=== PATIENT | female | born 1940 | race Caucasian/White ===

== ENCOUNTER 2016-11-05 10:05 | Emergency (ER) | payer MEDICARE, MEDICAID ==
[~2016-11-05] VITALS: Ht 149.9 cm; Wt 40.8 kg
[2016-11-05] MEDS ORDERED: ACETAMINOPHEN ES 500 MG TABLET ONE (10:17)
[2016-11-05] MEDS: ACETAMINOPHEN ES 500 MG TABLET PO ONE (10:22)
[2016-11-05 12:44] VITALS: BP 116/60
== END 2016-11-05 12:45 | disposition home or self-care (01) ==
LOC: ER 10:10
DX: S30.0XXA Contusion of lower back and pelvis, initial encounter (principal); E78.5 Hyperlipidemia, unspecified; F02.80 Dementia in other diseases classified elsewhere, unspecified severity, without behavioral disturbance, psychotic disturbance, mood disturbance, and anxiety; G30.9 Alzheimer's disease, unspecified; I12.0 Hypertensive chronic kidney disease with stage 5 chronic kidney disease or end stage renal disease; N18.6 End stage renal disease; Z86.73 Personal history of transient ischemic attack (TIA), and cerebral infarction without residual deficits; W18.39XA Other fall on same level, initial encounter; Y93.89 Activity, other specified; Y92.89 Other specified places as the place of occurrence of the external cause; Y99.9 Unspecified external cause status
CPT/HCPCS: 72110-TC; A4606; Z7610

== ENCOUNTER 2017-04-26 12:10 | Inpatient (IN) | payer MEDICARE, MEDICAID ==
[~2017-04-26] VITALS: Ht 152.4 cm; Wt 49.0 kg
--- NOTE | 2017-04-26 12:10 | NUR ---
BB PRIVATE EMS FROM [facility] FOR FEVER. PT C/O COUGH AND CONGESTION PT MISSED HER DIALYSIS YESTERDAY. PLACED ON MONITOR. AWAITING MD ORDER
[2017-04-26] MEDS ORDERED: ACETAMINOPHEN ES 500 MG TABLET PO ONE (12:30)
[2017-04-26] MEDS ORDERED: PIPERACILLIN /TAZOBACTAM 3.375 G in IV D5W 50 ML IV ONE (12:30)
[2017-04-26] MEDS ORDERED: VANCOMYCIN 1 GM in IV D5W 250 ML IV ONE (12:30)
[2017-04-26] MEDS ORDERED: IV NS 0.9% 1,000 ML BAG IV ONE (12:30)
[2017-04-26 12:41] LABS: BASOPHILS % (AUTO) 0.1 % (0.0-2.0); EOSINOPHILS # (AUTO) 0.1 /CMM (0.0-0.7); EOSINOPHILS % (AUTO) 0.9 % (0.0-6.0); HEMATOCRIT 39 % (33-45); LYMPHOCYTES # (AUTO) 0.7 /CMM (0.8-4.8); LYMPHOCYTES % (AUTO) 5.6 % (20.0-44.0); MEAN CORPUSCULAR HEMOGLOBIN 31 PG (26.0-33.0); MEAN CORPUSCULAR HGB CONC 33 g/dl (31.0-36.0); MEAN CORPUSCULAR VOLUME 93 fL (82-100); MONOCYTES # (AUTO) 0.6 /CMM (0.1-1.30); MONOCYTES % (AUTO) 4.9 % (2.0-12.0); NEUTROPHILS # (AUTO) 10.6 /CMM (1.8-8.9); NEUTROPHILS % (AUTO) 88.5 % (43.0-81.0); PLATELET COUNT (AUTO) 182 /CMM (150-450); RDW COEFFICIENT OF VARIATION 15.1 (11.5-15.0)
[2017-04-26 12:51] LABS: CALCIUM, SERUM 9.3 mg/dL (8.5-10.1); CARBON DIOXIDE 28 mmol/L (21-32); CHLORIDE 97 mmol/L (98-107); GLUCOSE 95 mg/dL (74-106); POTASSIUM 4.3 mmol/L (3.5-5.1); SODIUM SERUM 137 mmol/L (136-145); UREA NITROGEN, BLOOD 50 mg/dL (7-18)
[2017-04-26] MEDS ORDERED: ACETAMINOPHEN ES 500 MG TABLET ONE (12:53)
[2017-04-26 12:56] LABS: CREATININE 7.5 mg/dL (0.6-1.3)
[2017-04-26 12:57] LABS: ALANINE AMINOTRANSFERASE 11 U/L (12-78); ALBUMIN 2.9 g/dL (3.4-5.0); ALKALINE PHOSPHATASE 141 U/L (46-116); ASPARTATE AMINOTRANSFERASE 24 U/L (15-37); BILIRUBIN,DIRECT 0.2 mg/dL (0.0-0.2); TOTAL PROTEIN, SERUM 6.8 g/dL (6.4-8.2)
[2017-04-26 12:59] LABS: TROPONIN I 0.146 ng/mL (0.00-0.056)
--- NOTE | 2017-04-26 13:00 | NUR ---
SQL ARCHITECT AT BEDSIDE
[2017-04-26 13:02] LABS: INR 1.14 (0.87-1.13); PROTHROMBIN TIME 11.9 SECS (9.5-12.7)
--- NOTE | 2017-04-26 13:12 | NUR ---
DR. CHAMP REECE
[2017-04-26] MEDS ORDERED: CILO100T PO (13:28)
[2017-04-26] MEDS ORDERED: AMLO10TA2 PO (13:28)
[2017-04-26] MEDS ORDERED: FOLI0.8T23 PO (13:28)
[2017-04-26] MEDS ORDERED: MIRT7.5T10 PO (13:28)
[2017-04-26] MEDS ORDERED: SULF15DR6 EACHEYE (13:28)
[2017-04-26] MEDS ORDERED: BENA20TA2 PO (13:28)
[2017-04-26] MEDS ORDERED: ASPI-1152 PO (13:28)
[2017-04-26] MEDS ORDERED: ESOM20CA PO (13:28)
[2017-04-26] MEDS ORDERED: ATOR10TA PO (13:28)
[2017-04-26] MEDS ORDERED: DULO30CA2 PO (13:28)
[2017-04-26] MEDS ORDERED: SEVE800T8 PO (13:28)
--- NOTE | 2017-04-26 13:34 | NUR ---
[facility] PAGED DR SOLO AMMUNITION AND EXPLOSIVES HANDLER [phone]
[2017-04-26] MEDS ORDERED: IV NS 0.9% 1,000 ML IV PRN (14:21)
--- NOTE | 2017-04-26 14:27 | NUR ---
RECEIVED REPORT FROM ANGELIQUE STRANGE RN
[2017-04-26] MEDS ORDERED: ENOXAPARIN SODIUM 30 MG/0.3 ML DISP.SYRIN SQ SCH (14:30)
[2017-04-26] MEDS ORDERED: HYDROCODONE/APAP 5/325MG 1 EACH TABLET PO PRN (14:30)
[2017-04-26] MEDS ORDERED: MAG HYDROX/AL HYDROX/SIMETH 30 ML UDC PO PRN (14:30)
[2017-04-26] MEDS ORDERED: ZOLPIDEM TARTRATE 5 MG TABLET PO PRN (14:30)
[2017-04-26] MEDS ORDERED: ACETAMINOPHEN 325 MG TABLET PO PRN (14:30)
[2017-04-26] MEDS ORDERED: Z GUARD REMEDY 2 OZ OINT TP PRN (14:30)
--- NOTE | 2017-04-26 14:30 | NUR ---
PT REFUSED HDEZ CATH UNABLE TO PROVIDE URINE AT THIS TIME MD MENDOZA
--- NOTE | 2017-04-26 14:35 | NUR ---
GAVE REPORT TO ABEL GALINDO TELE 307-1 PNEUMONIA
--- NOTE | 2017-04-26 14:35 | NUR ---
ADMITTING DR SOLO
--- NOTE | 2017-04-26 15:30 | NUR ---
PATIENT REFUSED STRAIGHT CATH FOR URINE SPECIMEN
[2017-04-26] MEDS ORDERED: FEE PK DOSING 1 MIN EA MC ONE (15:58)
[2017-04-26 16:00] VITALS: BP_SYST 101; BP_SYST 154; BP_DIAS 57; BP_DIAS 92
--- NOTE | 2017-04-26 16:30 | NUR ---
RN ADMITTING NOTES PATIENT ARRIVED TO UNIT VIA A GURNEY AND PLACED IN ROOM 307-1. NO SIGNS AND SYMPTOMS OF DISTRESS OR PAIN. VITAL SIGNS ARE STABLE. 10L MASK SATURATING AT 92%. POSSIBLE DIAGNOSIS OF PNEUMONIA. BED IN LOW POSITION, LOCKED AND TWO SIDE RAILS ARE UP. WILL CONTINUE TO MONITOR AND ASSESS PATIENT THROUGH OUT MY SHIFT
[2017-04-26] MEDS: DOCUSATE SODIUM 100 MG CAPSULE PO SCH (16:48)
[2017-04-26] MEDS: CILOSTAZOL 100 MG TABLET PO SCH (16:48)
[2017-04-26] MEDS: SEVELAMER CARBONATE 800 MG TABLET PO SCH (16:48)
--- NOTE | 2017-04-26 18:49 | NUR ---
RN CLOSING NOTES PATIENT IS IN BED. ALERT AND ORIENTED TO NAME, PLACE AND TIME. SLOVAK SPEAKER. NO SIGNS AND SYMPTOMS OF DISTRESS. DENIED PAIN. IV SITE IS INTACT AND PATENT. ALL NURSING CARE ANTICIPATED AND MET. PATIENT KEPT SAFE AND CLEAN. BED IN LOW POSITION, LOCKED AND TWO SIDE RAILS ARE UP. CALL LIGHT WITHIN REACH FOR SAFETY. WILL ENDORSE TO DUST BOX WORKER NURSE.
--- NOTE | 2017-04-26 19:34 | NUR ---
rn note; RECEIVE PT IN BED AWAKE, BREATHING EVENLY. ON O2 AT 10LPM VIA MASK. NO SOB. NAD. SKIN WARM AND DRY. NO C/O PAIN OR DISCOMFORT,. BED LOW LOCKED .CALL LIGHT WITHIN REACH. WILL CONT TO MONITOR,
[2017-04-26 20:00] VITALS: BP 104/53
[2017-04-26] MEDS ORDERED: PIPERACILLIN /TAZOBACTAM 2.25 G in IV D5W 50 ML IV SCH (21:00)
[2017-04-26] MEDS ORDERED: PIPERACILLIN /TAZOBACTAM 2.25 G VIAL IV ONE (21:41)
[2017-04-26] MEDS: PIPERACILLIN /TAZOBACTAM 2.25 G in IV D5W 50 ML IV SCH (21:44)
[2017-04-26] MEDS: ATORVASTATIN 10 MG TABLET PO SCH (21:45)
[2017-04-26] MEDS: ONDANSETRON HCL/PF 4 MG/2 ML VIAL IVP PRN (21:45)
[2017-04-26] MEDS: MIRTAZAPINE 15 MG TABLET PO SCH (21:45)
--- NOTE | 2017-04-26 21:45 | NUR ---
ZOSYN IV NOT AVAILABLE ON THE FLOOR. ASKED CN, LIAM TO OVER RIDE THE MEDICATION. UNABLE TO SCAN.
[2017-04-26] MEDS: HEPARIN SODIUM, PORCINE 5000 UNITS/1 ML VIAL SQ SCH (21:46)
--- NOTE | 2017-04-26 21:46 | NUR ---
SPOKE TO DR. ANGULO OVER THE PHONE AND CONFIRMED THE HEPARIN ADMINISTRATION DESPITE THE PTT LEVEL OF 39. NO S/S OF BLEEDING NOTED AT THIS TIME. ZOFRAN GIVEN ORDERED PER PT'S REQUEST FOR C/O NAUSEA. NO EPISODE OF VOMITING. DTR AT THE BED SIDE TRANSLATED THE PT'S COMPLAIN. WILL CONT TO MONITOR,
[2017-04-27] VITALS: BP 112/58
[2017-04-27 04:00] VITALS: BP 107/57
[2017-04-27] MEDS ORDERED: PIPERACILLIN /TAZOBACTAM 2.25 G VIAL IV ONE (04:37)
[2017-04-27] MEDS: PIPERACILLIN /TAZOBACTAM 2.25 G in IV D5W 50 ML IV SCH ×3 (04:58→21:15)
--- NOTE | 2017-04-27 06:16 | NUR ---
RN NOTE; PT IN BED SLEEPING, AROUSES EASILY. BREATHING EVENLY. NO SOB. ON O2 AT 10 LPM VIA MASK JACOB WELL. WITH INTERMITTENT COUGH. AFEBRILE DURING THE NIGHT. NO C/O PAIN OR DISCOMFORT . NO MORE C/O N/V. NEEDS ATTENDED .ASSISTED W/ ADLS . BED LOW LOCKED. CALL LIGHT WITHIN REACH. WILL CONT TO MONITOR AND WILL ENDORSE TO AM SHIFT FOR VLADIMIR. Addendum: 04/27/17 at 0621 by DAKOTAH ARTEAGA RN SINUS RHYTHM ON TELE MONITOR,
[2017-04-27 06:53] LABS: BASOPHILS % (AUTO) 0.2 % (0.0-2.0); HEMATOCRIT 35 % (33-45); HEMOGLOBIN 11.6 g/dL (11.5-14.8); LYMPHOCYTES # (AUTO) 1.3 /CMM (0.8-4.8); LYMPHOCYTES % (AUTO) 11.3 % (20.0-44.0); MEAN CORPUSCULAR HEMOGLOBIN 31 PG (26.0-33.0); MEAN CORPUSCULAR HGB CONC 33 g/dl (31.0-36.0); MEAN CORPUSCULAR VOLUME 94 fL (82-100); MONOCYTES # (AUTO) 0.3 /CMM (0.1-1.30); MONOCYTES % (AUTO) 2.4 % (2.0-12.0); NEUTROPHILS # (AUTO) 10.1 /CMM (1.8-8.9); NEUTROPHILS % (AUTO) 86.1 % (43.0-81.0); PLATELET COUNT (AUTO) 156 /CMM (150-450); RDW COEFFICIENT OF VARIATION 16.1 (11.5-15.0); RED BLOOD CELL COUNT(AUTO) 3.76 MIL/uL (4.0-5.2); WHITE BLOOD COUNT (AUTO) 11.8 K/uL (4.3-11.0)
[2017-04-27 07:04] LABS: ALANINE AMINOTRANSFERASE 16 U/L (12-78); ALBUMIN 2.4 g/dL (3.4-5.0); ALKALINE PHOSPHATASE 139 U/L (46-116); ASPARTATE AMINOTRANSFERASE 28 U/L (15-37); BILIRUBIN,TOTAL 0.9 mg/dL (0.2-1.0); CALCIUM, SERUM 8.9 mg/dL (8.5-10.1); CARBON DIOXIDE 26 mmol/L (21-32); CHLORIDE 100 mmol/L (98-107); GLUCOSE 87 mg/dL (74-106); MAGNESIUM 1.7 mg/dL (1.8-2.4); PHOSPHORUS 3.2 mg/dL (2.5-4.9); POTASSIUM 4.5 mmol/L (3.5-5.1); SODIUM SERUM 140 mmol/L (136-145); UREA NITROGEN, BLOOD 58 mg/dL (7-18)
[2017-04-27 07:09] LABS: CREATININE 7.9 mg/dL (0.6-1.3)
[2017-04-27 07:33] LABS: CHOLESTEROL 73 mg/dL (<200); HDL CHOLESTEROL 31 mg/dL (40-60); LDL 19 mg/dL (0-99); TRIGLYCERIDES 77 mg/dL (30-150)
[2017-04-27 08:00] VITALS: BP 106/64
--- NOTE | 2017-04-27 08:00 | NUR ---
SKEINER NOTES PATIENT IN BED RESTING NO SOB OR ACUTE DISTRESS. PATIENT ARGENTINE SPEAKING. ON 10L OF FACE MASK WILL TITRATE OXYGEN PATIENT TOLERATES. PATIENT ALERT, ORIENTED X3. BED IN LOW LOCKED POSITION. CALL LIGHT WITHIN REACH. PERIPHERAL IV INTACT PATENT. WILL CONTINUE TO MONITOR.
[2017-04-27] MEDS: VIT B CMPLX 3/FA/VIT C/BIOTIN 1 TAB TABLET PO SCH (08:20)
[2017-04-27] MEDS: CILOSTAZOL 100 MG TABLET PO SCH ×2 (08:20→16:35)
[2017-04-27] MEDS: ASPIRIN EC 81 MG TABLET.DR PO SCH (08:20)
[2017-04-27] MEDS: SEVELAMER CARBONATE 800 MG TABLET PO SCH ×3 (08:20→16:35)
[2017-04-27] MEDS: DOCUSATE SODIUM 100 MG CAPSULE PO SCH ×2 (08:20→16:36)
[2017-04-27] MEDS: PANTOPRAZOLE 40 MG TABLET.DR PO SCH (08:20)
[2017-04-27] MEDS: AMLODIPINE BESYLATE 10 MG TABLET PO SCH (08:21)
[2017-04-27] MEDS: HEPARIN SODIUM, PORCINE 5000 UNITS/1 ML VIAL SQ SCH ×2 (08:22→21:16)
[2017-04-27] MEDS: BENAZEPRIL HCL 20 MG TABLET PO SCH (08:22)
[2017-04-27] MEDS ORDERED: DULOXETINE HCL 30 MG CAPSULE.DR PO SCH (09:00)
[2017-04-27 12:00] VITALS: BP 125/62
--- NOTE | 2017-04-27 13:50 | NUR ---
BAKERY ASSISTANT NOTES PATIENT SEEN AND EVALUATED BY DR. PEREZ ORDERS FOR HD ON 04/28/17 AND DC IV FLUIDS ORDERS NOTED AND CARRIED OUT.
[2017-04-27 16:00] VITALS: BP 99/55
[2017-04-27] MEDS ORDERED: VANCOMYCIN 500 MG in IV D5W 100 ML IV PRN (16:00)
[2017-04-27] MEDS: LACTOBACILLUS RHAMNOSUS GG 1 EACH CAP.SPRINK PO SCH (18:12)
--- NOTE | 2017-04-27 18:34 | NUR ---
REPORTING ANALYST NOTES PATIENT IN BED RESTING NO SOB OR ACUTE DISTRESS NOTED. PATIENT ALERT, ORIENTED X3. PERIPHERAL IV INTACT PATENT. ALL DUE MEDICATIONS ADMINISTERED. ALL NEEDS MET. WILL ENDORSE CARE TO PM SHIFT.
--- NOTE | 2017-04-27 19:30 | NUR ---
rn note; RECEIVED PT IN BED, AWAKE AND RESPONSIVE. BREATHING EVENLY. NO SOB. NAD . O2 AT 5LMP VIA NC JACOB WELL.SKIN WARM AND DRY,. AFEBRILE. DENIED ANY PAIN OR DISCOMFORT, SR ON TELE MONITOR, NEEDS ATTENDED. CALL LIGHT WITHIN REACH. WILL CONT TO MONITOR,
[2017-04-27 20:00] VITALS: BP 106/55
[2017-04-27] MEDS: MIRTAZAPINE 15 MG TABLET PO SCH (21:14)
[2017-04-27] MEDS: ATORVASTATIN 10 MG TABLET PO SCH (21:14)
[2017-04-28] VITALS: BP 108/57
[2017-04-28 04:00] VITALS: BP 107/64
[2017-04-28] MEDS: PIPERACILLIN /TAZOBACTAM 2.25 G in IV D5W 50 ML IV SCH ×3 (05:21→21:35)
--- NOTE | 2017-04-28 06:13 | NUR ---
PT IN BED SLEEPING, AROUSES EASILY. BREATHING EVENLY. NO SOB. O2 AT 5LPM VIA NC JACOB WELL. DENIED ANY PAIN OR DISCOMFORT. ALL NEEDS ATTENDED. ASSISTED W/ ADLs. CALL LIGHT WITHIN REACH,. WILL CONT TO MONITOR AND WILL ENDORSE TO MONITOR,
[2017-04-28 08:00] VITALS: BP 123/68
[2017-04-28 08:06] LABS: CALCIUM, SERUM 8.5 mg/dL (8.5-10.1); CARBON DIOXIDE 23 mmol/L (21-32); CHLORIDE 99 mmol/L (98-107); GLUCOSE 84 mg/dL (74-106); MAGNESIUM 1.8 mg/dL (1.8-2.4); POTASSIUM 4.6 mmol/L (3.5-5.1); SODIUM SERUM 138 mmol/L (136-145); UREA NITROGEN, BLOOD 67 mg/dL (7-18)
[2017-04-28 08:07] LABS: CREATININE 8.8 mg/dL (0.6-1.3)
[2017-04-28] MEDS: AMLODIPINE BESYLATE 10 MG TABLET PO SCH (09:00)
[2017-04-28] MEDS: DOCUSATE SODIUM 100 MG CAPSULE PO SCH ×2 (09:16→17:46)
[2017-04-28] MEDS: LACTOBACILLUS RHAMNOSUS GG 1 EACH CAP.SPRINK PO SCH ×2 (09:16→17:46)
[2017-04-28] MEDS: SEVELAMER CARBONATE 800 MG TABLET PO SCH ×3 (09:16→17:46)
[2017-04-28] MEDS: VIT B CMPLX 3/FA/VIT C/BIOTIN 1 TAB TABLET PO SCH (09:16)
[2017-04-28] MEDS: PANTOPRAZOLE 40 MG TABLET.DR PO SCH (09:16)
[2017-04-28] MEDS: ASPIRIN EC 81 MG TABLET.DR PO SCH (09:16)
[2017-04-28] MEDS: BENAZEPRIL HCL 20 MG TABLET PO SCH (11:20)
[2017-04-28 12:00] VITALS: BP 90/54
[2017-04-28] MEDS: CILOSTAZOL 100 MG TABLET PO SCH ×2 (14:16→18:42)
[2017-04-28] MEDS: HEPARIN SODIUM, PORCINE 5000 UNITS/1 ML VIAL SQ SCH (14:17)
[2017-04-28] MEDS ORDERED: VANCOMYCIN 1 GM in IV D5W 250 ML IV ONE (15:00)
[2017-04-28 16:00] VITALS: BP_SYST 111; BP_DIAS 62; BP_DIAS 67
--- NOTE | 2017-04-28 18:00 | NUR ---
PT. HAD DIALYSIS TODAY TOLERATED WELL,BP DOWN FOLLOWING DIALYSIS,AM BP MEDS HELD.FAMILY IN TO VISIT.
--- NOTE | 2017-04-28 19:35 | NUR ---
MS/RN NOTES RECEIVED PT. LYING IN BED RESTING. BREATHING EVEN AND UNLABORED ON ROOM AIR. NO SOB, RESPIRATORY DISTRESS OR COMPLAINTS OF PAIN NOTED AT THIS TIME. PT. WITH LEFT AC 20 GAUGE IV SALINE LOCK PRESENT, PATENT AND INTACT. BED LOCKED AND IN LOWEST POSITION, SIDE RAILS UP X3, BED ALARM ON, CALL LIGHT WITHIN REACH, WILL CONTINUE TO MONITOR.
[2017-04-28 20:00] VITALS: BP 106/55
[2017-04-28] MEDS: MIRTAZAPINE 15 MG TABLET PO SCH (21:35)
[2017-04-28] MEDS: ATORVASTATIN 10 MG TABLET PO SCH (21:35)
[2017-04-29] MEDS: HEPARIN SODIUM, PORCINE 5000 UNITS/1 ML VIAL SQ SCH ×3 (00:50→20:48)
[2017-04-29] MEDS: PIPERACILLIN /TAZOBACTAM 2.25 G in IV D5W 50 ML IV SCH ×3 (05:38→20:34)
[2017-04-29] MEDS ORDERED: VANCOMYCIN 500 MG in IV D5W 100 ML IV PRN (06:00)
--- NOTE | 2017-04-29 06:09 | NUR ---
MS/RN NOTES PT. IS LYING IN BED. AWAKE, ALERT AND ORIENTED X 2-3. BREATHING EVEN AND UNLABORED ON ROOM AIR. NO SOB, RESPIRATORY DISTRESS OR COMPLAINTS OF PAIN NOTED AT THIS TIME. PT. WITH LEFT AC 20 GAUGE PERIPHERAL IV PRESENT, PATENT AND INTACT. ADMINISTERING TO PT. ZOSYN ORDERED. ALL PT. NEEDS MET. BED LOCKED AND IN LOWEST POSITION, SIDE RAILS UP X3, BED ALARM ON, CALL LIGHT WITHIN REACH, WILL ENDORSE TO DAYSHIFT NURSE FOR CONTINUITY OF CARE.
--- NOTE | 2017-04-29 07:30 | NUR ---
RECEIVED PT. IN AM ALERT AND ORIENTED X2-3.NO COMPLAINTS OFFERED.
[2017-04-29 08:00] VITALS: BP 125/70
[2017-04-29 08:19] LABS: CALCIUM, SERUM 8.9 mg/dL (8.5-10.1); CARBON DIOXIDE 29 mmol/L (21-32); CHLORIDE 96 mmol/L (98-107); CREATININE 6.6 mg/dL (0.6-1.3); GLUCOSE 84 mg/dL (74-106); POTASSIUM 4.1 mmol/L (3.5-5.1); SODIUM SERUM 137 mmol/L (136-145); UREA NITROGEN, BLOOD 37 mg/dL (7-18)
[2017-04-29] MEDS: BENAZEPRIL HCL 20 MG TABLET PO SCH (09:00)
[2017-04-29] MEDS: SEVELAMER CARBONATE 800 MG TABLET PO SCH ×3 (09:47→17:55)
[2017-04-29] MEDS: CILOSTAZOL 100 MG TABLET PO SCH ×2 (09:48→17:55)
[2017-04-29] MEDS: LACTOBACILLUS RHAMNOSUS GG 1 EACH CAP.SPRINK PO SCH ×2 (09:48→17:55)
[2017-04-29] MEDS: AMLODIPINE BESYLATE 10 MG TABLET PO SCH (09:48)
[2017-04-29] MEDS: VIT B CMPLX 3/FA/VIT C/BIOTIN 1 TAB TABLET PO SCH (09:48)
[2017-04-29] MEDS: DOCUSATE SODIUM 100 MG CAPSULE PO SCH ×2 (09:49→17:55)
[2017-04-29] MEDS: PANTOPRAZOLE 40 MG TABLET.DR PO SCH (09:49)
[2017-04-29] MEDS: ASPIRIN EC 81 MG TABLET.DR PO SCH (09:49)
[2017-04-29] MEDS: ONDANSETRON HCL/PF 4 MG/2 ML VIAL IVP PRN (14:50)
--- NOTE | 2017-04-29 14:50 | NUR ---
MEDICATED FOR NAUSEA WITH ZOFRAN.
--- NOTE | 2017-04-29 14:50 | NUR ---
MEDICATED Addendum: 04/29/17 at 1917 by KRISTIE TANG RN INCOMPLETE NOTE
[2017-04-29 16:52] VITALS: BP 108/57
--- NOTE | 2017-04-29 17:34 | NUR ---
ANTOLIN PEREZ,DR. NATION, IN TO SEE PT.ORDERS GIVEN.DR. NATION INFORMED THAT PT. IS HAVING DIARRHEA.
--- NOTE | 2017-04-29 19:00 | NUR ---
PT. DID NOT EAT BREAKFAST OR LUNCH.
--- NOTE | 2017-04-29 19:30 | NUR ---
MS RN NOTES RECEIVED PT IN BED, RESTING AT THIS TIME. AWAKE, A/O X 2. FAROESE SPEAKING. NO SOB NOR DISTRESS NOTED AT THIS TIME. DENIES ANY PAIN OR DISCOMFORT. IV ON LAC INTACT AND PATENT, NO S/S OF INFILTRATION NOTED. RFA AV SHUNT CLEAN AND DRY. WITH NO BLEEDING NOTED AT THIS TIME. ALL NEEDS ATTENDED AND MET. CALL LIGHT WITHIN REACH. BED ON LOWEST LEVEL. WILL CONT TO MONITOR.
[2017-04-29 20:00] VITALS: BP 106/61
[2017-04-29] MEDS: MIRTAZAPINE 15 MG TABLET PO SCH (21:39)
[2017-04-29] MEDS: ATORVASTATIN 10 MG TABLET PO SCH (21:39)
--- NOTE | 2017-04-30 01:09 | NUR ---
PT ASLEEP AT THIS TIME, AROUSES EASILY. NO SOB, DISTRESS AT THIS TIME. NO C/O PAIN OR DISCOMFORT AT THIS TIME. SAFETY PRECAUTIONS OBSERVED. BED ON LOWEST LEVEL. CALL LIGHT WITHIN REACH. WILL CONT TO MONITOR.
[2017-04-30] MEDS: PIPERACILLIN /TAZOBACTAM 2.25 G in IV D5W 50 ML IV SCH ×3 (05:35→21:17)
--- NOTE | 2017-04-30 06:52 | NUR ---
MS RN NOTES PT IN BED, RESTING AT THIS TIME, REMAINS A/O X 2. TRINIDADIAN SPEAKING. NO SOB NOR DISTRESS NOTED AT THIS TIME. DENIES ANY PAIN OR DISCOMFORT. IV ON LAC INTACT AND PATENT, NO S/S OF INFILTRATION NOTED. RFA AV SHUNT CLEAN AND DRY. WITH NO BLEEDING NOTED. ALL NEEDS ATTENDED AND MET. CALL LIGHT WITHIN REACH. BED ON LOWEST LEVEL. WILL ENDORSE TO NEXT SHIFT FOR VLADIMIR. .
[2017-04-30 07:27] LABS: CALCIUM, SERUM 9.1 mg/dL (8.5-10.1); CARBON DIOXIDE 28 mmol/L (21-32); CHLORIDE 96 mmol/L (98-107); GLUCOSE 81 mg/dL (74-106); POTASSIUM 4.1 mmol/L (3.5-5.1); SODIUM SERUM 137 mmol/L (136-145); UREA NITROGEN, BLOOD 44 mg/dL (7-18); VANCOMYCIN,TROUGH 26 ug/ml (12-20)
--- NOTE | 2017-04-30 07:30 | NUR ---
MS RN OPENING NOTES RECEIVED PATIENT IN STABLE CONDITION. PATIENT IS ALERT AND ORIENTED. IN NO APPARENT DISTRESS. BEDSIDE RAILS ARE UP X2. BED IS LOCKED AND LOWERED. CALL LIGHT IS WITHIN REACH. WILL CONTINUE TO MONITOR.
[2017-04-30 07:57] LABS: CREATININE 8.1 mg/dL (0.6-1.3)
[2017-04-30 08:00] VITALS: BP 122/64
[2017-04-30] MEDS: VIT B CMPLX 3/FA/VIT C/BIOTIN 1 TAB TABLET PO SCH (08:06)
[2017-04-30] MEDS: LACTOBACILLUS RHAMNOSUS GG 1 EACH CAP.SPRINK PO SCH ×2 (08:06→16:19)
[2017-04-30] MEDS: SEVELAMER CARBONATE 800 MG TABLET PO SCH ×3 (08:06→16:19)
[2017-04-30] MEDS: ASPIRIN EC 81 MG TABLET.DR PO SCH (08:06)
[2017-04-30] MEDS: CILOSTAZOL 100 MG TABLET PO SCH ×2 (08:06→16:19)
[2017-04-30] MEDS: PANTOPRAZOLE 40 MG TABLET.DR PO SCH (08:07)
[2017-04-30] MEDS: DOCUSATE SODIUM 100 MG CAPSULE PO SCH ×2 (08:07→16:20)
[2017-04-30] MEDS: BENAZEPRIL HCL 20 MG TABLET PO SCH (08:08)
[2017-04-30] MEDS: HEPARIN SODIUM, PORCINE 5000 UNITS/1 ML VIAL SQ SCH ×2 (08:13→21:16)
--- NOTE | 2017-04-30 13:00 | NUR ---
HELD ZOSYN DUE TO PATIENT HAVING DIALYSIS TODAY. STILL WAITING ON DIALYSIS NURSE AND PROCEDURE.
[2017-04-30 16:00] VITALS: BP 117/59
[2017-04-30] MEDS: SULFACETAMIDE 10% OPHTH 15 ML BOTTLE EACHEYE SCH (16:19)
--- NOTE | 2017-04-30 16:42 | NUR ---
DIALYSIS NURSE AT BEDSIDE.
--- NOTE | 2017-04-30 18:50 | NUR ---
MS RN CLOSING NOTES PATIENT IS IN NO APPARENT DISTRESS. PATIENT IS ALERT. ALL NEEDS WERE MET. BEDSIDE RAILS ARE UP X2. BED IS LOCKED AND LOWERED. CALL LIGHT IS WITHIN REACH. WILL ENDORSE CARE TO CONTROL SYSTEM MANAGER NURSE FOR VLADIMIR.
--- NOTE | 2017-04-30 19:15 | NUR ---
MS RN NOTES RECEIVED PT IN BED, AWAKE, A/O X 2. GREENLANDIC SPEAKING. NO SOB NOR DISTRESS NOTED AT THIS TIME. DENIES ANY PAIN OR DISCOMFORT. IV ON LAC INTACT AND PATENT, NO S/S OF INFILTRATION NOTED. HD ONGOING AT THIS TIME, LC MOTEL OPERATOR AT BEDSIDE. ALL NEEDS ATTENDED AND MET. CALL LIGHT WITHIN REACH. BED ON LOWEST LEVEL. WILL CONT TO MONITOR.
[2017-04-30 20:00] VITALS: BP 115/57
[2017-04-30] MEDS: MIRTAZAPINE 15 MG TABLET PO SCH (21:21)
[2017-04-30] MEDS: ATORVASTATIN 10 MG TABLET PO SCH (21:21)
--- NOTE | 2017-04-30 22:15 | NUR ---
PLACED A CALL TO MATEO BUTCHER REPORT GIVEN.
--- NOTE | 2017-04-30 22:25 | NUR ---
TRANSFERRED PT TO [facility] 2 VIA HOSP PROTOCOL, PT IN STABLE CONDITION , NO DISTRESS NOR SOB NOTED. RESPIRATION IS EVEN AND UNLABORED. IV SITE ON LAC INTACT AND PATENT, NO INFILTRATION NOTED. NO C/O PAIN OR DISCOMFORT. BELONGINGS SENT WITH THE PT, ENDORSED PT TO MATEO BUTCHER ACCORDINGLY.
--- NOTE | 2017-04-30 22:30 | NUR ---
MS RN NOTE: RECEIVED REPORT FROM MARIEL, PATIENT RESTING IN BED, NO ACUTE DISTRESS NOTED. IV TO LAC IN PLACE. AV SHUNT TO RFA, NO BLEEDING NOTED. BED LOCKED AND IN LOWEST POSITION, CALL LIGHT IN REACH. WILL CONTINUE TO MONITOR.
[2017-05-01 03:09] VITALS: BP 104/56
[2017-05-01] MEDS: PIPERACILLIN /TAZOBACTAM 2.25 G in IV D5W 50 ML IV SCH ×2 (04:40→14:13)
--- NOTE | 2017-05-01 06:15 | NUR ---
MS RN NOTE: PATIENT RESTING IN BED, NO ACUTE DISTRESS NOTED. IV TO LAC IN PLACE. AV SHUNT TO RFA, NO BLEEDING NOTED. BED LOCKED AND IN LOWEST POSITION, CALL LIGHT IN REACH. WILL ENDORSE TO DAY NURSE TO CONTINUE WITH PLAN OF CARE.
[2017-05-01 06:52] LABS: BASOPHILS % (AUTO) 0.1 % (0.0-2.0); EOSINOPHILS # (AUTO) 0.1 /CMM (0.0-0.7); HEMATOCRIT 39 % (33-45); HEMOGLOBIN 12.6 g/dL (11.5-14.8); LYMPHOCYTES # (AUTO) 0.9 /CMM (0.8-4.8); LYMPHOCYTES % (AUTO) 16.3 % (20.0-44.0); MEAN CORPUSCULAR HEMOGLOBIN 30 PG (26.0-33.0); MEAN CORPUSCULAR HGB CONC 33 g/dl (31.0-36.0); MEAN CORPUSCULAR VOLUME 92 fL (82-100); MONOCYTES # (AUTO) 0.6 /CMM (0.1-1.30); MONOCYTES % (AUTO) 9.6 % (2.0-12.0); NEUTROPHILS # (AUTO) 4.2 /CMM (1.8-8.9); PLATELET COUNT (AUTO) 286 /CMM (150-450); RDW COEFFICIENT OF VARIATION 15.5 (11.5-15.0); RED BLOOD CELL COUNT(AUTO) 4.21 MIL/uL (4.0-5.2); WHITE BLOOD COUNT (AUTO) 5.8 K/uL (4.3-11.0)
[2017-05-01 07:04] LABS: CALCIUM, SERUM 9.4 mg/dL (8.5-10.1); CARBON DIOXIDE 29 mmol/L (21-32); CHLORIDE 102 mmol/L (98-107); CREATININE 5.6 mg/dL (0.6-1.3); GLUCOSE 101 mg/dL (74-106); POTASSIUM 4.1 mmol/L (3.5-5.1); SODIUM SERUM 141 mmol/L (136-145); UREA NITROGEN, BLOOD 20 mg/dL (7-18)
[2017-05-01 08:00] VITALS: BP 116/65
[2017-05-01] MEDS: DOCUSATE SODIUM 100 MG CAPSULE PO SCH ×2 (09:00→16:55)
[2017-05-01 09:21] VITALS: BP 116/65
[2017-05-01] MEDS: BENAZEPRIL HCL 20 MG TABLET PO SCH (09:21)
[2017-05-01] MEDS: ASPIRIN EC 81 MG TABLET.DR PO SCH (09:21)
[2017-05-01] MEDS: VIT B CMPLX 3/FA/VIT C/BIOTIN 1 TAB TABLET PO SCH (09:21)
[2017-05-01] MEDS: SULFACETAMIDE 10% OPHTH 15 ML BOTTLE EACHEYE SCH ×2 (09:21→16:55)
[2017-05-01] MEDS: PANTOPRAZOLE 40 MG TABLET.DR PO SCH (09:21)
[2017-05-01] MEDS: LACTOBACILLUS RHAMNOSUS GG 1 EACH CAP.SPRINK PO SCH ×2 (09:21→16:55)
[2017-05-01] MEDS: SEVELAMER CARBONATE 800 MG TABLET PO SCH ×3 (09:21→16:55)
[2017-05-01] MEDS: CILOSTAZOL 100 MG TABLET PO SCH ×2 (09:21→16:55)
[2017-05-01] MEDS: HEPARIN SODIUM, PORCINE 5000 UNITS/1 ML VIAL SQ SCH (09:31)
--- NOTE | 2017-05-01 18:00 | NUR ---
GUN NUMBERER PATIENT ALERT AND ORIENTED X2 WITH EPISODES OF CONFUSION, NO RESPIRATORY DISTRESS NOTED, DENIES PAIN OR DISCOMFORT, SKIN ASSESSMENT COMPLETED, SKIN DRY AND INTACT, PATIENT HAS R ARM AV FISTULA, AND LEFT AC#20 SALINE LOCK, REPORT GIVEN TO SNF RN MARAH AND REQUESTED TO LEAVE PIV BECAUSE PATIENT WILL CONTINUE IV ANTIBIOTIC AT SNF. PATIENT RECEIVED DISCHARGED INSTRUCTIONS AND VERBALIZED UNDERSTANDING, BUT PER PATIENT SHE'S UNABLE TO SIGN/WRITE. BELONGINGS RECONCILED AND COMPLETE. PATIENT LEFT THE FACILITY IN STABLE CONDITION VIA AMBULANCE. HEMODIALYSIS SCHEDULE IS 1:30PM AT [facility].
== END 2017-05-01 18:00 | DRG 177 ==
LOC: ER 12:15 → TELE 14:48 → MED 04-28 13:30 → MEDSG2 04-30 22:21
PROVIDERS: ADMIT Internal Medicine; ATTEND Internal Medicine
PROC: 5A1D70Z Performance of Urinary Filtration, Intermittent, Less than 6 Hours Per Day (ICD-10-PCS; principal; 2017-04-28)
DX: J15.6 Pneumonia due to other Gram-negative bacteria (principal); J96.01 Acute respiratory failure with hypoxia; I21.A1 Myocardial infarction type 2; N18.6 End stage renal disease; I12.0 Hypertensive chronic kidney disease with stage 5 chronic kidney disease or end stage renal disease; G93.1 Anoxic brain damage, not elsewhere classified; E46 Unspecified protein-calorie malnutrition; F02.80 Dementia in other diseases classified elsewhere, unspecified severity, without behavioral disturbance, psychotic disturbance, mood disturbance, and anxiety; I25.10 Atherosclerotic heart disease of native coronary artery without angina pectoris; G30.9 Alzheimer's disease, unspecified; Z86.73 Personal history of transient ischemic attack (TIA), and cerebral infarction without residual deficits; Z99.2 Dependence on renal dialysis; Z79.899 Other long term (current) drug therapy; Z79.82 Long term (current) use of aspirin; E78.5 Hyperlipidemia, unspecified; M85.9 Disorder of bone density and structure, unspecified; I73.9 Peripheral vascular disease, unspecified; D63.8 Anemia in other chronic diseases classified elsewhere; I25.2 Old myocardial infarction
CPT/HCPCS: 36415; 71010-TC; 71250-TC; 80048-TC; 80053-TC; 80061-TC; 80076-TC; 80202-TC; 83605-TC; 83735-TC; 84100-TC; 84484-TC; 85025-TC; 85730-TC; 87040-TC; 87081-TC; 93307-TC; A4216; A4606; J1644; J2405; J2543; J3370; J7030; J7050; J7060; Z7610

== ENCOUNTER 2017-07-15 12:18 | Emergency (ER) | payer MEDICARE, MEDICAID ==
[~2017-07-15] VITALS: Ht 152.4 cm; Wt 49.9 kg
[2017-07-15 12:18] VITALS: BP 141/89
[~2017-07-15 12:18] MED LIST: AMLO10TA2 PO; ASPI-1152 PO; ATOR10TA PO; BENA20TA2 PO; CILO100T PO; DULO30CA2 PO; ESOM20CA PO; FOLI0.8T23 PO; MIRT7.5T10 PO; SEVE800T8 PO; SULF15DR6 EACHEYE
--- NOTE | 2017-07-15 13:35 | NUR ---
CALLED FOR TRANSPORT. ETA 30 MINUTES [id number]
== END 2017-07-15 15:35 | disposition home or self-care (01) ==
LOC: ER 12:19
DX: M70.51 Other bursitis of knee, right knee (principal); E78.5 Hyperlipidemia, unspecified; F02.80 Dementia in other diseases classified elsewhere, unspecified severity, without behavioral disturbance, psychotic disturbance, mood disturbance, and anxiety; G30.9 Alzheimer's disease, unspecified; I12.0 Hypertensive chronic kidney disease with stage 5 chronic kidney disease or end stage renal disease; M85.861 Other specified disorders of bone density and structure, right lower leg; N18.6 End stage renal disease; Z79.82 Long term (current) use of aspirin; Z86.73 Personal history of transient ischemic attack (TIA), and cerebral infarction without residual deficits; Z99.2 Dependence on renal dialysis
CPT/HCPCS: 73564-TC; A4606; Z7610

== ENCOUNTER 2017-10-16 11:53 | Emergency (ER) | payer MEDICARE, MEDICAID ==
[~2017-10-16] VITALS: Ht 147.3 cm; Wt 44.0 kg
[~2017-10-16 11:53] MED LIST changes: -AMLO10TA2 PO; +AMLO10TA6 PO; -BENA20TA2 PO; +BENA20TA9 PO
--- NOTE | 2017-10-16 11:53 | NUR ---
AMADOR FROM [facility] C/O NAUSEA AND DIZZINESS SINCE THIS AM. PLACED ON MONITOR. AWAITING MD ORDER
[2017-10-16 12:34] LABS: BASOPHILS # (AUTO) 0.1 /CMM (0.0-0.2); BASOPHILS % (AUTO) 1.3 % (0.0-2.0); EOSINOPHILS % (AUTO) 0.8 % (0.0-6.0); HEMATOCRIT 33 % (33-45); HEMOGLOBIN 10.9 g/dL (11.5-14.8); LYMPHOCYTES % (AUTO) 21.2 % (20.0-44.0); MEAN CORPUSCULAR HGB CONC 33 g/dl (31.0-36.0); MEAN CORPUSCULAR VOLUME 94 fL (82-100); MONOCYTES # (AUTO) 0.3 /CMM (0.1-1.30); MONOCYTES % (AUTO) 6.4 % (2.0-12.0); NEUTROPHILS # (AUTO) 3.3 /CMM (1.8-8.9); NEUTROPHILS % (AUTO) 70.3 % (43.0-81.0); PLATELET COUNT (AUTO) 418 /CMM (150-450); RDW COEFFICIENT OF VARIATION 14.5 (11.5-15.0); RED BLOOD CELL COUNT(AUTO) 3.46 MIL/uL (4.0-5.2); WHITE BLOOD COUNT (AUTO) 4.7 K/uL (4.3-11.0)
[2017-10-16 12:40] LABS: CALCIUM, SERUM 9.8 mg/dL (8.5-10.1); CARBON DIOXIDE 32 mmol/L (21-32); CHLORIDE 102 mmol/L (98-107); CREATININE 3.4 mg/dL (0.6-1.3); GLUCOSE 157 mg/dL (74-106); POTASSIUM 3.5 mmol/L (3.5-5.1); SODIUM SERUM 140 mmol/L (136-145); UREA NITROGEN, BLOOD 13 mg/dL (7-18)
--- NOTE | 2017-10-16 12:40 | NUR ---
EKG IN PROGRESS
--- NOTE | 2017-10-16 12:41 | NUR ---
UNABLE TO PROVIDE URINE VERBAL ORDER IN AND OUT CATH DR [facility] FOR NO URINE
[2017-10-16 12:47] LABS: ALANINE AMINOTRANSFERASE 11 U/L (12-78); ALBUMIN 3.7 g/dL (3.4-5.0); ALKALINE PHOSPHATASE 229 U/L (46-116); ASPARTATE AMINOTRANSFERASE 16 U/L (15-37); BILIRUBIN,DIRECT 0.1 mg/dL (0.0-0.2); BILIRUBIN,TOTAL 0.4 mg/dL (0.2-1.0); TOTAL PROTEIN, SERUM 7.3 g/dL (6.4-8.2)
--- NOTE | 2017-10-16 12:48 | NUR ---
PHLEBOTOMY LAB ASSISTANT AT BEDSIDE
[2017-10-16 12:49] LABS: TROPONIN I < 0.017 ng/mL (0.00-0.056)
--- NOTE | 2017-10-16 13:19 | NUR ---
PAGED DR GA NATION
--- NOTE | 2017-10-16 13:38 | NUR ---
NO URINE DR MAR AWARE
--- NOTE | 2017-10-16 14:22 | NUR ---
CALLED [facility] AND SPOKE TO PYTHON ENGINEER KALIE TO ARRANGE A BLS TRANSPORT BACK TO HER SNF. WAS GIVEN AN ETA CHISEL GRINDER TIME OF 15:00. TRIP#: [id number]
--- NOTE | 2017-10-16 15:09 | NUR ---
IV removed. Catheter intact and site benign. Pressure and 4x4 applied to site. No bleeding noted.
--- NOTE | 2017-10-16 15:10 | NUR ---
Patient discharged to home in stable condition. Written and verbal after care instructions given. Patient verbalizes understanding of instruction.
--- NOTE | 2017-10-16 15:13 | NUR ---
CALLED [facility]LE AND WAS GIVEN A 45 MIN ETA
--- NOTE | 2017-10-16 16:50 | NUR ---
Patient discharged to home in stable condition. Written and verbal after care instructions given. Patient verbalizes understanding of instruction.
[2017-10-16 16:51] VITALS: BP 95/60
--- NOTE | 2017-10-16 16:52 | NUR ---
IV removed. Catheter intact and site benign. Pressure and 4x4 applied to site. No bleeding noted.
== END 2017-10-16 16:52 | disposition home or self-care (01) ==
LOC: ER 11:55
DX: R53.1 Weakness (principal); I12.0 Hypertensive chronic kidney disease with stage 5 chronic kidney disease or end stage renal disease; N18.6 End stage renal disease; G30.9 Alzheimer's disease, unspecified; F02.80 Dementia in other diseases classified elsewhere, unspecified severity, without behavioral disturbance, psychotic disturbance, mood disturbance, and anxiety; E78.5 Hyperlipidemia, unspecified; Z99.2 Dependence on renal dialysis; Z79.82 Long term (current) use of aspirin
CPT/HCPCS: 36415; 71045-TC; 80048-TC; 80076-TC; 84484-TC; 85025-TC; A4606; Z7610

== ENCOUNTER 2019-02-10 10:32 | Inpatient (IN) | payer MEDICARE, MEDICAID ==
[~2019-02-10] VITALS: Ht 142.2 cm; Wt 41.8 kg
[~2019-02-10 10:32] MED LIST changes: -AMLO10TA6 PO; +AMLO10TA7 PO
--- NOTE | 2019-02-10 10:34 | NUR ---
PT BIBPA C/O LEFT HIP PAIN, DENIES TRAUMA OR FALL, PT IS AAOX2, NOT IN RESPIRATORY DISTRESS, HOOKED TO MONITOR, KEPT RESTED AND COMFORTABLE, WILL CONTINUE TO MONITOR. AWAITING ER MD FOR EVAL.
[2019-02-10] MEDS ORDERED: POLY15DR40 EACHEYE (10:47)
[2019-02-10] MEDS ORDERED: TRAM50TA2 PO (10:47)
[2019-02-10] MEDS ORDERED: DICL100G16 TP (10:47)
[2019-02-10] MEDS ORDERED: SENN-168 PO (10:47)
[2019-02-10] MEDS ORDERED: CYCL5TAB PO (10:47)
--- NOTE | 2019-02-10 11:08 | NUR ---
AT BEDSIDE FOR EVAL.
--- NOTE | 2019-02-10 11:18 | NUR ---
FINANCIAL COMPLIANCE OFFICER AT BEDSIDE FOR XRAY.
[2019-02-10] MEDS ORDERED: ACETAMINOPHEN ES 500 MG TABLET ONE (11:19)
[2019-02-10] MEDS ORDERED: CARISOPRODOL 350 MG TABLET ONE (11:19)
[2019-02-10] MEDS ORDERED: CARISOPRODOL 350 MG TABLET PO ONE (11:30)
[2019-02-10] MEDS ORDERED: ACETAMINOPHEN ES 500 MG TABLET PO ONE (11:30)
[2019-02-10] MEDS ORDERED: MORPHINE SULFATE INJ 4 MG/ML DISP.SYRIN ONE (12:57)
[2019-02-10] MEDS ORDERED: MORPHINE SULFATE INJ 2 MG/ML DISP.SYRIN IM ONE (13:00)
--- NOTE | 2019-02-10 14:09 | NUR ---
PT IS BACK FROM THE CT SCAN.
--- NOTE | 2019-02-10 14:42 | NUR ---
DR CHAPIS REECE
--- NOTE | 2019-02-10 14:46 | NUR ---
CALLED FOR [facility] BED
[2019-02-10 14:53] LABS: EOSINOPHILS % (AUTO) 2.2 % (0.0-6.0); HEMATOCRIT 31 % (33-45); HEMOGLOBIN 10.3 g/dL (11.5-14.8); LYMPHOCYTES # (AUTO) 1.2 /CMM (0.8-4.8); LYMPHOCYTES % (AUTO) 25.3 % (20.0-44.0); MEAN CORPUSCULAR HGB CONC 33 g/dl (31.0-36.0); MEAN CORPUSCULAR VOLUME 103 fL (82-100); MONOCYTES # (AUTO) 0.3 /CMM (0.1-1.30); MONOCYTES % (AUTO) 6.6 % (2.0-12.0); NEUTROPHILS # (AUTO) 3.1 /CMM (1.8-8.9); NEUTROPHILS % (AUTO) 65.9 % (43.0-81.0); PLATELET COUNT (AUTO) 312 /CMM (150-450); RED BLOOD CELL COUNT(AUTO) 2.99 MIL/uL (4.0-5.2); WHITE BLOOD COUNT (AUTO) 4.7 K/uL (4.3-11.0)
[2019-02-10 15:02] LABS: CALCIUM, SERUM 9.2 mg/dL (8.5-10.1); CARBON DIOXIDE 32 mmol/L (21-32); CHLORIDE 101 mmol/L (98-107); CREATININE 5.3 mg/dL (0.6-1.3); GLUCOSE 85 mg/dL (74-106); POTASSIUM 4.9 mmol/L (3.5-5.1); SODIUM SERUM 138 mmol/L (136-145); UREA NITROGEN, BLOOD 37 mg/dL (7-18)
--- NOTE | 2019-02-10 15:49 | NUR ---
DR NATION REPAGED
--- NOTE | 2019-02-10 16:36 | NUR ---
RECIEVED BED 312-1
--- NOTE | 2019-02-10 17:08 | NUR ---
REPORT GIVEN TO MATEO GROVES FOR VLADIMIR.
[2019-02-10 17:20] VITALS: BP 109/55
--- NOTE | 2019-02-10 17:20 | NUR ---
MS/RN NOTE THE PATIENT IS RECEIVED ON A GURNEY. TRANSFERRED THE PATIENT TO BED WITH 3 PEOPLE ASSIST. THE PATIENT DENIES PAIN AT THIS TIME. IN ROOM AIR AND DENIES SOB. BREATHING REGULAR AND UNLABORED. THE PATIENT IS GIVEN ORIENTATION TO ROOM/UNIT AND SHE VERBALIZED UNDERSTANDING. BED LOW AND LOCKED. SIDE RAILS UP X3. CALL LIGHT WITHIN REACH. WILL CONTINUE TO MONITOR.
--- NOTE | 2019-02-10 18:32 | NUR ---
MS/RN NOTE PER DR NATION NEW ORDERS OF PT, OT AND HEPARIN 5000 UNITS SUBQ Q12HR. THE ORDERS ARE READ BACK, VERIFIED. NOTED AND CARRIED OUT.
--- NOTE | 2019-02-10 18:53 | NUR ---
MS/RN NOTE PER DR NATION NEW ORDER FOR PHYSICIAN CONSULT WITH DR MELVI VALDOVINOS. NOTED AND CARRIED OUT.
--- NOTE | 2019-02-10 18:54 | NUR ---
MS/RN NOTE THE PATIENT IN BED. AWAKE. ALERT AND ORIENTED X2. IN ROOM AND SATURATION IS AT 97%. DENIES SOB. RESPIRATION REGULAR AND UNLABORED. DENIES PAIN AT THIS TIME. THE PATIENT IN STABLE CONDITION. RIGHT UPPER ARM HD CATH PRESENT. LAC G 18 PATENT AND SALINE LOCKED. BED LOW AND LOCKED. SIDE RAILS UP X3. CALL LIGHT WITHIN REACH. WILL ENDORSE TO GOLD MINER BLASTING.
[2019-02-10] MEDS ORDERED: DICLOFENAC TOPICAL 100 GM GEL..GM. TP PRN (19:00)
--- NOTE | 2019-02-10 19:00 | NUR ---
MATEO pace opening notes Received Pt from morning nurse. Pt is resting in bed comfortably. Pt is alert and orientedX3. Pt speaks Rwandan and able to make needs known. Pt's family at the bedside. Respiration is normal. No SOB. No nausea or vomiting. Pt denies any pain or discomfort at this time. IV sites at LAC #18 is intact, patent and SL. Right upper arm HD fistula is intact, patent, thrill and bruit. POC was discussed with Pt and Pt's family. Pt and Pt's family verbalize understanding. Per AM nurse Pt refused Hemodialysis today. Consent for Hemodialysis is signed by Pt. Pt verbalize understanding. Safety precautions is maintained all the time. Bed at low position, brakes locked, side rails upX3 and call light is within reach. Will continue to monitor.
[2019-02-10] MEDS: TRAMADOL HCL 50 MG TABLET PO SCH (19:51)
[2019-02-10 20:00] VITALS: BP 125/67
[2019-02-10] MEDS: HEPARIN SODIUM, PORCINE 5000 UNITS/1 ML VIAL SQ SCH (21:42)
[2019-02-10] MEDS: DULOXETINE HCL 30 MG CAPSULE.DR PO SCH (21:47)
[2019-02-10] MEDS: ATORVASTATIN 10 MG TABLET PO SCH (21:47)
[2019-02-10] MEDS ORDERED: SENNOSIDES 8.6 MG TABLET PO PRN (22:00)
--- NOTE | 2019-02-11 06:40 | NUR ---
RN medsurg notes Pt is resting in bed comfortably. Respiration is normal. No SOB. No S/S of distress noted. VS is stable. Afebrile. IV sites at LAC #18 is clean, intact, patent and SL. Kept Pt warm, dry and comfortable. Routine meds were given as ordered. Turning and Repositioning Q 2hr. Pt tolerated activity well. All needs met and attended. Safety precautions is maintained. Bed at low position, brakes locked, side rails upX3 and call light is within reach. Will endorse to morning nurse for VLADIMIR.
--- NOTE | 2019-02-11 07:10 | NUR ---
MS RN OPENING NOTES RECEIVED PATIENT IN BED ALERT AND AWAKE ORIENTED X4. FAMILY AT BEDSIDE. PATIENT C/O PAIN 2/10 BUT TOLERABLE PER PATIENT. RIGHT FA AV FISTULA INTACT WITH + BRUIT/THRILL. LAC # 18 SL INTACT AND PATENT. ABLE TO VERBALIZE NEEDS. CALL LIGHT WITHIN REACH. BED IN LOWEST POSITION, LOCKED. BED ALARM ON. 1:1 SITTER AT SIDE.
[2019-02-11 08:00] VITALS: BP 134/74
[2019-02-11] MEDS: PANTOPRAZOLE 40 MG TABLET.DR PO SCH (08:36)
[2019-02-11] MEDS: TRAMADOL HCL 50 MG TABLET PO SCH ×3 (08:37→16:29)
[2019-02-11] MEDS: BENAZEPRIL HCL 20 MG TABLET PO SCH (08:38)
[2019-02-11] MEDS: VIT B CMPLX 3/FA/VIT C/BIOTIN 1 TAB TABLET PO SCH (08:38)
[2019-02-11] MEDS: HEPARIN SODIUM, PORCINE 5000 UNITS/1 ML VIAL SQ SCH ×2 (08:56→20:32)
[2019-02-11] MEDS ORDERED: CILOSTAZOL 100 MG TABLET PO SCH (09:00)
--- NOTE | 2019-02-11 09:00 | NUR ---
MS RN NOTES HELP BP MED, ANTICIPATING HD
--- NOTE | 2019-02-11 11:00 | NUR ---
MS RN NOTES PATIENT SEEN AND EXAMINED BY DR. VALDOVINOS, PATIENT WILL HAVE HD SCHEDULED FOR [facility] 02/12/19.
[2019-02-11] MEDS: SEVELAMER CARBONATE 800 MG TABLET PO SCH (13:12)
[2019-02-11 16:00] VITALS: BP 122/55
--- NOTE | 2019-02-11 18:59 | NUR ---
MS RN CLOSING NOTES PATIENT RESTING COMFORTABLY IN BED. DENIES ANY C/O PAIN NOR DISCOMFORT AT THIS TIME. NO SOB. LAC # 18 SL INTACT AND PATENT. ABLE TO VERBALIZE NEEDS. CALL LIGHT WITHIN REACH. BED IN LOWEST POSITION, LOCKED. BED ALARM ON. IN NO APPARENT DISTRESS.
--- NOTE | 2019-02-11 19:10 | NUR ---
MS RN OPENING NOTES Received patient A/O x3, awake on semi-Cruz's position on bed. On RA, no SOB/respiratory distress noted at this time. Patient denies any discomfort at this time. AV fistula RFA +bruit/thrill, no bleeding noted. Kept on bed clean, dry and comfortable. Call light within easy reach. Will continue to monitor.
[2019-02-11 20:00] VITALS: BP 122/58
[2019-02-11] MEDS: ATORVASTATIN 10 MG TABLET PO SCH (21:02)
[2019-02-11] MEDS: DULOXETINE HCL 30 MG CAPSULE.DR PO SCH (21:02)
[2019-02-11 21:46] VITALS: BP 122/55
[2019-02-12] MEDS ORDERED: IBUPROFEN 400 MG TABLET PO PRN (06:30)
[2019-02-12] MEDS: PANTOPRAZOLE 40 MG TABLET.DR PO SCH (06:50)
--- NOTE | 2019-02-12 06:53 | NUR ---
MS RN CLOSING NOTES Received order from permaculture contractor MD for PRN pain meds. Administered as ordered. All nursing needs attended. Patient noted to have a good sleep within the shift. Kept on bed clean, dry and comfortable. Call light within easy reach. For hemodialysis today. Endorsed to the next shift.
--- NOTE | 2019-02-12 07:40 | NUR ---
ms rn received on bed, awake,alert,oriented x3-4,south african speaking,denies pain at this time, not in any form of distress, respirations even and unlabored,no sob noted, all needs attended.
[2019-02-12] MEDS: BENAZEPRIL HCL 20 MG TABLET PO SCH (08:31)
[2019-02-12] MEDS: VIT B CMPLX 3/FA/VIT C/BIOTIN 1 TAB TABLET PO SCH (08:33)
[2019-02-12] MEDS: ASPIRIN EC 81 MG TABLET.DR PO SCH (08:33)
[2019-02-12] MEDS: TRAMADOL HCL 50 MG TABLET PO SCH ×4 (08:34→18:13)
[2019-02-12] MEDS: HEPARIN SODIUM, PORCINE 5000 UNITS/1 ML VIAL SQ SCH ×2 (08:34→21:20)
[2019-02-12 08:45] VITALS: BP 111/53
--- NOTE | 2019-02-12 09:00 | NUR ---
ms kinney breakfast served,due meds given, tolerated well.
--- NOTE | 2019-02-12 09:45 | NUR ---
ms rn was seen by pt, walked w/ walker,tolerated well.
--- NOTE | 2019-02-12 15:00 | NUR ---
ms kinney hd done, no output taken,will monitor patient.
[2019-02-12] MEDS: SEVELAMER CARBONATE 800 MG TABLET PO SCH (15:15)
--- NOTE | 2019-02-12 19:00 | NUR ---
ms rn on bed, no distress noted,all needs attended
--- NOTE | 2019-02-12 19:40 | NUR ---
RN INITIAL NOTES: RECEIVED REPORT FROM ERIN GALINDO. PT IN BED, AWAKE, A/O X3 JAPANESE SPEAKING ONLY, PT JUST RECEIVED PAIN MEDICATION NOT TOO LONG AGO. S/P HD TODAY NO OUTPUT, JUST CLEANING. PT HAS RFA AV FISTULA IN PLACED, COVERED WITH DRESSING , C/D/I. POSTED PRECAUTION/NOTED FOR BP AND BLOOD DRAW IN THE ROOM (BY PT'S WALL). IV ACCESS PATENT AND FLUSHING WELL, ON HL. PT CALLED, STATED "PANIAL AND POINTING TO HER DIAPER". ASSISTED SPRING INSPECTOR IN PROVIDING PERINEAL CARE, AND CHANGING OF DIAPER. BLE OFFLOADED. SAFETY PRECAUTIONS FOR FALL INITIATED, CALL LIGHT IN REACH, WILL CONTINUE TO MONITOR.
[2019-02-12 20:00] VITALS: BP 131/62
[2019-02-12] MEDS: ATORVASTATIN 10 MG TABLET PO SCH (21:18)
[2019-02-12] MEDS: DULOXETINE HCL 30 MG CAPSULE.DR PO SCH (21:18)
--- NOTE | 2019-02-13 06:47 | NUR ---
rn closing notes: pt in bed, sleeping, appears calm and comfortable, no facial grimace noted. iv access patent and flushing well, on hl. vs remains stable, needs attended. safety precautions for fall remains engaged, call light in reach, will endorse to day rn for continuity of care.
--- NOTE | 2019-02-13 07:15 | NUR ---
MS RN OPENING NOTES RECEIVED PATIENT IN BED AWAKE, EASILY AROUSED. A/O X 2-3, SINGAPOREAN SPEAKING. PT TOLERATING RA, WITH NO ACUTE RESPIRATORY DISTRESS NOTED. PT EXHIBITS NO ANY PAIN OR DISCOMFORT AT THIS TIME. RFA AV FISTULA NOTED. PIV TO LAC G18 SL, FLUSHED WITH NS, INTACT AND OPERATIONAL. PT KEPT COMFORTABLE. HOB ELEVATED. SAFETY MEASURES IN PLACE, BED IN LOWEST, LOCKED POSITION WITH SIDE RAILS UP X 3. CALL LIGHT KEPT WITHIN REACH. WILL CONTINUE PLAN OF CARE.
[2019-02-13] MEDS: PANTOPRAZOLE 40 MG TABLET.DR PO SCH (07:47)
[2019-02-13 08:00] VITALS: BP 131/68
[2019-02-13] MEDS: ASPIRIN EC 81 MG TABLET.DR PO SCH (08:03)
[2019-02-13] MEDS: TRAMADOL HCL 50 MG TABLET PO SCH ×3 (08:03→16:56)
[2019-02-13] MEDS: VIT B CMPLX 3/FA/VIT C/BIOTIN 1 TAB TABLET PO SCH (08:03)
[2019-02-13] MEDS: BENAZEPRIL HCL 10 MG TABLET PO SCH (08:04)
[2019-02-13] MEDS: HEPARIN SODIUM, PORCINE 5000 UNITS/1 ML VIAL SQ SCH ×2 (08:07→22:02)
[2019-02-13] MEDS: SEVELAMER CARBONATE 800 MG TABLET PO SCH (12:36)
[2019-02-13 16:00] VITALS: BP 151/76
--- NOTE | 2019-02-13 16:00 | NUR ---
MS RN NOTES SEEN AND EVALUATED BY DR. NATION, FAMILY PRESENT AT BEDSIDE. DR NATION WANTS A CONSULT WITH EARNESTINE/ONCO, DR ANDER [place] CONTACTED BY MD. FAMILY AWARE OF PLAN. WILL ENDORSE TO INCOMING FOURTH GRADE TEACHER NURSE FOR VLADIMIR.
--- NOTE | 2019-02-13 18:50 | NUR ---
MS RN CLOSING NOTES PATIENT IN BED AWAKE. A/O X 2-3, UGANDAN SPEAKING. PT TOLERATING RA, WITH NO ACUTE RESPIRATORY DISTRESS NOTED. PT DENIES ANY PAIN OR DISCOMFORT AT THIS TIME, ON ROUTINE PAIN MANAGEMENT MEDICINE. RFA AV FISTULA NOTED. PIV TO LAC G18 SL, FLUSHED WITH NS, INTACT AND OPERATIONAL. ALL NEEDS AND CARE ATTENDED AND PROVIDED. PT KEPT COMFORTABLE. HOB ELEVATED. SAFETY MEASURES IN PLACE, BED IN LOWEST, LOCKED POSITION WITH SIDE RAILS UP X 3. CALL LIGHT KEPT WITHIN REACH. WILL ENDORSE TO INCOMING NIGHT NURSE FOR VLADIMIR.
--- NOTE | 2019-02-13 19:45 | NUR ---
RN OPENING NOTES RECEIVED REPORT FROM ANKIT BOOTHE. FOUND Pt AWAKE IN BED, FAMILY VISITING AT BEDSIDE. Pt IS A/O X3, VERBAL, PORTUGUESE SPEAKING ONLY, WITH SOME NOTED CONFUSION. NO S/S OF ACUTE DISTRESS OR SOB NOTED. NO C/O PAIN AT THIS TIME. RFA AV FISTULA. IV ACCESS LAC #18G, SL. SAFETY MEASURES IN PLACE. BED LOW, LOCKED, HOB ELEVATED, SIDE RAILS UP, CALL LIGHT & BED SIDE TABLE WITHIN REACH. BED ALARM ON. WILL CONTINUE TO MONITOR Pt's CONDITION AND SAFETY THROUGHOUT THE NIGHT.
[2019-02-13 20:10] VITALS: BP 131/73
[2019-02-13] MEDS: DULOXETINE HCL 30 MG CAPSULE.DR PO SCH (22:01)
[2019-02-13] MEDS: ATORVASTATIN 10 MG TABLET PO SCH (22:01)
[2019-02-14 06:21] LABS: BASOPHILS % (AUTO) 0.6 % (0.0-2.0); EOSINOPHILS % (AUTO) 2.9 % (0.0-6.0); HEMATOCRIT 34 % (33-45); LYMPHOCYTES # (AUTO) 1.1 /CMM (0.8-4.8); LYMPHOCYTES % (AUTO) 25.3 % (20.0-44.0); MEAN CORPUSCULAR HGB CONC 33 g/dl (31.0-36.0); MEAN CORPUSCULAR VOLUME 102 fL (82-100); MONOCYTES # (AUTO) 0.3 /CMM (0.1-1.30); MONOCYTES % (AUTO) 6.8 % (2.0-12.0); NEUTROPHILS # (AUTO) 2.7 /CMM (1.8-8.9); NEUTROPHILS % (AUTO) 64.4 % (43.0-81.0); PLATELET COUNT (AUTO) 295 /CMM (150-450); RED BLOOD CELL COUNT(AUTO) 3.31 MIL/uL (4.0-5.2); WHITE BLOOD COUNT (AUTO) 4.2 K/uL (4.3-11.0)
[2019-02-14 06:48] LABS: CALCIUM, SERUM 9.2 mg/dL (8.5-10.1); CARBON DIOXIDE 27 mmol/L (21-32); CHLORIDE 101 mmol/L (98-107); CREATININE 6.6 mg/dL (0.6-1.3); GLUCOSE 86 mg/dL (74-106); MAGNESIUM 1.9 mg/dL (1.8-2.4); PHOSPHORUS 3.4 mg/dL (2.5-4.9); POTASSIUM 5.6 mmol/L (3.5-5.1); SODIUM SERUM 140 mmol/L (136-145); UREA NITROGEN, BLOOD 37 mg/dL (7-18)
--- NOTE | 2019-02-14 07:06 | NUR ---
RN CLOSING NOTES NO SIGNIFICANT CHANGES IN Pt's CONDITION. NO S/S OF ACUTE DISTRESS OR SOB NOTED DURING THE NIGHT. ALL NEEDS MET AND ATTENDED TO. SAFETY MEASURES IN PLACE. WILL ENDORSE TO DAYSHIFT RN FOR Pt's VLADIMIR.
[2019-02-14 08:00] VITALS: BP 151/76
--- NOTE | 2019-02-14 08:01 | NUR ---
MS/RN Patient received Patient received from production material coordinator. A/O X2-3, daughter at bedside providing translation. Complaining of lower back pain, will administer pain medications with morning medication. Safety measures in place, bed in low setting, side rails in upright position. Call light within reach, will continue to monitor.
[2019-02-14] MEDS: VIT B CMPLX 3/FA/VIT C/BIOTIN 1 TAB TABLET PO SCH (08:43)
[2019-02-14] MEDS: TRAMADOL HCL 50 MG TABLET PO SCH ×3 (08:43→16:47)
[2019-02-14] MEDS: ASPIRIN EC 81 MG TABLET.DR PO SCH (08:44)
[2019-02-14] MEDS: BENAZEPRIL HCL 10 MG TABLET PO SCH (08:44)
[2019-02-14] MEDS: PANTOPRAZOLE 40 MG TABLET.DR PO SCH (08:44)
[2019-02-14] MEDS: HEPARIN SODIUM, PORCINE 5000 UNITS/1 ML VIAL SQ SCH ×2 (08:46→21:41)
--- NOTE | 2019-02-14 09:00 | NUR ---
MS/RN Medications Morning medications administered as ordered.
--- NOTE | 2019-02-14 11:30 | NUR ---
MS/RN Dr Azar Order entered by MD for patient to be scheduled for MRI spine. Will call daughter for consent/checklist completion.
--- NOTE | 2019-02-14 12:15 | NUR ---
MS/finisher machine order Verbal order obtained from case therapist Mason from Dr Schultz that patient is to be discharged today back to facility ([facility])
--- NOTE | 2019-02-14 12:30 | NUR ---
MS/RN Checklist Daughter Renea called on to obtain information regarding patient having any metal in body as scheduled for MRI before discharge. No answer, message left requesting call back.
[2019-02-14] MEDS: SEVELAMER CARBONATE 800 MG TABLET PO SCH (12:32)
--- NOTE | 2019-02-14 13:33 | NUR ---
MS/RN Consent Second call placed to daughter to obtain consent/complete checklist for MRI. Second message left.
--- NOTE | 2019-02-14 16:38 | NUR ---
MS/RN MRI Still unable to contact family to obtain consent for MRI, per charge nurse Alejandra, cancel test and discharge patient after HDX.
--- NOTE | 2019-02-14 17:57 | NUR ---
MS/RN S/B Dr Azar Seen by Dr Azar - after speaking with Dr Schultz, discharge to SNF to be held until tomorrow to enable patient to have MRI. HDX also to be held until after MRI.
--- NOTE | 2019-02-14 18:20 | NUR ---
MS/RN End note Patient remains in stable condition, all needs attended. Family to complete MRI checklist prior to test tomorrow. Will endorse to shift superintendent caustic cresylate.
--- NOTE | 2019-02-14 19:45 | NUR ---
RN OPENING NOTES RECEIVED REPORT FROM DAYSHIFT RN BETH. FOUND Pt AWAKE IN BED, FAMILY VISITING AT BEDSIDE. Pt IS A/OX2, VERBAL, LUXEMBOURGISH SPEAKING ONLY, WITH SOME NOTED CONFUSION. NO S/S OF ACUTE DISTRESS OR SOB NOTED. NO C/O PAIN AT THIS TIME. RFA AV FISTULA. IV ACCESS LAC #18G, SL. SAFETY MEASURES IN PLACE. BED LOW, LOCKED, HOB ELEVATED, SIDE RAILS UP, CALL LIGHT & BED SIDE TABLE WITHIN REACH. BED ALARM ON. WILL CONTINUE TO MONITOR Pt's CONDITION AND SAFETY THROUGHOUT THE NIGHT.
[2019-02-14 20:00] VITALS: BP 135/64
[2019-02-14] MEDS: ATORVASTATIN 10 MG TABLET PO SCH (21:38)
[2019-02-14] MEDS: DULOXETINE HCL 30 MG CAPSULE.DR PO SCH (21:38)
[2019-02-15 07:23] LABS: ALANINE AMINOTRANSFERASE < 6 U/L (12-78); ALBUMIN 3.4 g/dL (3.4-5.0); ALKALINE PHOSPHATASE 171 U/L (46-116); ASPARTATE AMINOTRANSFERASE 14 U/L (15-37); BILIRUBIN,DIRECT 0.2 mg/dL (0.0-0.2); BILIRUBIN,TOTAL 0.5 mg/dL (0.2-1.0); TOTAL PROTEIN, SERUM 6.3 g/dL (6.4-8.2)
[2019-02-15 07:27] LABS: IRON, SERUM 41 ug/dl (50-175); TOTAL IRON BINDING CAPACITY 92 ug/dl (250-450)
--- NOTE | 2019-02-15 07:44 | NUR ---
MS/RN Patient received RECEIVED REPORT FROM NIGHTSHIFT MATEO ORTIZ. FOUND Pt AWAKE IN BED, FAMILY VISITING AT BEDSIDE. Pt IS A/O X3, VERBAL, NORWEGIAN SPEAKING ONLY, WITH SOME NOTED CONFUSION. NO S/S OF ACUTE DISTRESS OR SOB NOTED. NO C/O PAIN AT THIS TIME. RFA AV FISTULA. IV ACCESS LAC #18G, SL. SAFETY MEASURES IN PLACE. BED LOW, LOCKED, HOB ELEVATED, SIDE RAILS UP, CALL LIGHT & BED SIDE TABLE WITHIN REACH. BED ALARM ON. WILL CONTINUE TO MONITOR Pt's CONDITION AND SAFETY THROUGHOUT THE NIGHT.
[2019-02-15 07:48] LABS: FERRITIN 2892 ng/mL (8-388)
[2019-02-15 08:00] VITALS: BP 149/70
[2019-02-15] MEDS: TRAMADOL HCL 50 MG TABLET PO SCH ×3 (08:31→17:00)
[2019-02-15] MEDS: VIT B CMPLX 3/FA/VIT C/BIOTIN 1 TAB TABLET PO SCH (08:31)
[2019-02-15] MEDS: ASPIRIN EC 81 MG TABLET.DR PO SCH (08:31)
[2019-02-15] MEDS: PANTOPRAZOLE 40 MG TABLET.DR PO SCH (08:31)
[2019-02-15] MEDS: BENAZEPRIL HCL 10 MG TABLET PO SCH (08:33)
[2019-02-15] MEDS: HEPARIN SODIUM, PORCINE 5000 UNITS/1 ML VIAL SQ SCH (08:38)
--- NOTE | 2019-02-15 09:15 | NUR ---
MS/RN Medications Morning medications administered as ordered.
--- NOTE | 2019-02-15 12:15 | NUR ---
MS/RN MRI Patient taken to MRI.
[2019-02-15] MEDS: SEVELAMER CARBONATE 800 MG TABLET PO SCH (12:32)
--- NOTE | 2019-02-15 13:30 | NUR ---
MS/RN Back from MRI Patient back in room following MRI. No results as of yet, Johnny (HDX) nurse made aware that patient needs to be dialyzed as soon as possible due to contrast being used.
[2019-02-15] MEDS ORDERED: GADOTERIDOL 279.3 MG/ML VIAL IV ONE (13:43)
[2019-02-15 16:00] VITALS: BP 146/71
--- NOTE | 2019-02-15 17:00 | NUR ---
MS/RN Exit care Exit care prepared, chart copied.
--- NOTE | 2019-02-15 17:17 | NUR ---
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
--- NOTE | 2019-02-15 18:07 | NUR ---
MS/RN Report Report called to Dee GALINDO at [facility].
--- NOTE | 2019-02-15 19:19 | NUR ---
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 Granddaughter Swathi called and informed of transfer. All paperwork given to paramedics, jan removed.
[2019-02-16 09:28] LABS: IMMUNOGLOBULIN A, SERUM 161 mg/dL (64-422); IMMUNOGLOBULIN G, SERUM 949 mg/dL (700-1600); IMMUNOGLOBULIN M, SERUM 85 mg/dL (26-217)
[2019-02-16 12:07] LABS: *SPE A/G RATIO 1.4 (0.7-1.7); *SPE ALBUMIN 3.5 g/dL (2.9-4.4); *SPE ALPHA-1-GLOBULIN 0.2 g/dL (0.0-0.4); *SPE ALPHA-2-GLOBULIN 0.8 g/dL (0.4-1.0); *SPE BETA GLOBULIN 0.6 g/dL (0.7-1.3); *SPE GLOBULIN, TOTAL 2.5 g/dL (2.2-3.9); *SPE M-SPIKE Not Observed g/dL (Not Observed); *SPEGAMMA GLOBULIN 0.9 g/dL (0.4-1.8)
== END 2019-02-15 19:15 | DRG 542 ==
LOC: ER 10:35 → MED 16:47
PROVIDERS: ADMIT Internal Medicine; ATTEND Internal Medicine
PROC: 5A1D70Z Performance of Urinary Filtration, Intermittent, Less than 6 Hours Per Day (ICD-10-PCS; principal; 2019-02-12)
PROC: 5A1D70Z Performance of Urinary Filtration, Intermittent, Less than 6 Hours Per Day (ICD-10-PCS; 2019-02-14)
DX: M80.852A Other osteoporosis with current pathological fracture, left femur, initial encounter for fracture (principal); N18.6 End stage renal disease; I12.0 Hypertensive chronic kidney disease with stage 5 chronic kidney disease or end stage renal disease; Z86.73 Personal history of transient ischemic attack (TIA), and cerebral infarction without residual deficits; Z99.2 Dependence on renal dialysis; M19.90 Unspecified osteoarthritis, unspecified site; G30.9 Alzheimer's disease, unspecified; F02.80 Dementia in other diseases classified elsewhere, unspecified severity, without behavioral disturbance, psychotic disturbance, mood disturbance, and anxiety; E78.5 Hyperlipidemia, unspecified; E83.9 Disorder of mineral metabolism, unspecified; D53.9 Nutritional anemia, unspecified; D63.1 Anemia in chronic kidney disease; M51.36 Other intervertebral disc degeneration, lumbar region; R63.4 Abnormal weight loss; Z68.20 Body mass index [BMI] 20.0-20.9, adult; D72.819 Decreased white blood cell count, unspecified; Z79.899 Other long term (current) drug therapy; Z79.82 Long term (current) use of aspirin; M85.9 Disorder of bone density and structure, unspecified
CPT/HCPCS: 36415; 72131-TC; 72158-TC; 72197-TC; 73502; 73700-TC; 80048-TC; 80076-TC; 82728-TC; 82784; 83540-TC; 83735-TC; 84100-TC; 84155; 84165; 84443-TC; 85025-TC; 86334; 86706; 87081-TC; 87340; 90935-TC; 97110-TC; 97116-TC; 97530-TC; A9579; G0378; J1644; J2270